=== PATIENT | female | born 1960 | race Caucasian/White ===

== ENCOUNTER 2024-01-13 15:40 | Inpatient (IN) ==
[2024-01-13] MEDS: 0.9 % SODIUM CHLORIDE 1,000 ML IV ONE (16:30)
[2024-01-13 16:34] LABS: Basophils # (Auto) 0.03 K/mcL (0.00-0.30); Basophils % (Auto) 0.5 % (0.0-2.0); Eosinophils # (Auto) 0.07 K/mcL (0.00-0.70); Eosinophils % (Auto) 1.1 % (0.0-7.0); Hematocrit 39.5 % (34.1-44.9); Hemoglobin 13.4 g/dL (11.2-15.7); Lymphocytes # (Auto) 1.04 K/mcL (1.50-4.80); Lymphocytes % (Auto) 15.9 % (15.5-49.0); Mean Cell Volume 90.6 fL (80.0-100.0); Mean Corpuscular HGB Conc 33.9 g/dL (31.0-36.0); Mean Platelet Volume 12.5 fL (8.8-12.5); Monocytes # (Auto) 0.36 K/mcL (0.10-0.90); Monocytes % (Auto) 5.5 % (1.0-12.0); Neutrophils % (Auto) 76.8 % (38.0-78.0); Platelet Count 133 K/mcL (140-440); RBC 4.36 M/mcL (3.59-5.38); Red Cell Distribution Width 12.6 % (11.5-14.5); WBC 6.6 K/mcL (4.5-11.0)
[2024-01-13 17:01] LABS: ALT/SGPT < 5 U/L (0-40); AST/SGOT 17 U/L (<32); Albumin 4.1 gm/dL (3.2-5.2); Albumin/Globulin Ratio 1.6 (1.0-2.3); Alkaline Phosphatase 64 U/L (39-117); Bilirubin,Total 0.4 mg/dL (0.1-1.0); Blood Urea Nitrogen 17 mg/dL (8-23); Carbon Dioxide 20 mmol/L (22-30); Chloride 95 mmol/L (96-108); Globulin 2.6 gm/dL (2.2-3.7); Glomerular Filtration Rate 59; Glucose 504 mg/dL (70-105)
[2024-01-13 17:10] LABS: Beta Hydroxybutyrate 2.41 mmol/L (<0.27)
[2024-01-13] MEDS: LACTATED RINGERS 1,000 ML IV ONE (18:03)
[2024-01-13] MEDS: INSULIN REGULAR, HUMAN 1 UNIT/0.01 ML UNIT IV ONE (18:21)
[2024-01-13] MEDS: ONDANSETRON 4 MG/2 ML VIAL IV ONE ×2 (18:22→22:00)
[2024-01-13] MEDS: INSULIN REGULAR, HUMAN 50 UNIT in 0.9 % SODIUM CHLORIDE 99.5 ML IV SCH (19:45)
[2024-01-13] MEDS: INSULIN REGULAR, HUMAN 1 UNIT/0.01 ML UNIT ONE (19:46)
[2024-01-13 20:19] LABS: Appearance,Urine Clear (Clear); Bacteria,Urine Few /hpf (0); Bilirubin,Urine Negative (Negative); Color,Urine Yellow; Culture Indicated,Urine Yes; Glucose,Urine (UA) 500(2+) mg/dL (Negative); Ketones,Urine 40(2+) mg/dL (Negative); Leukocyte Esterase,Urine Negative /uL (Negative); Nitrate,Urine Negative (Negative); PH,Urine 5.5 (5.0-9.0); Protein,Urine Negative (Negative); Urine Blood Negative ery/mcL (Negative); Urine RBC 1 /hpf (0-3); Urine Squamous Epithelial Cell 1 /hpf (0-4); Urine WBC 4 /hpf (0-4); Urobilinogen,Urine Normal
[2024-01-13] MEDS ORDERED: SENNOSIDES 1 TABLET PO PRN (22:18)
[2024-01-13] MEDS ORDERED: POLYETHYLENE GLYCOL 3350 17 GM PACKET PO PRN (22:18)
[2024-01-13] MEDS ORDERED: ONDANSETRON 4 MG/2 ML VIAL IV PRN (22:18)
[2024-01-13] MEDS ORDERED: POTASSIUM CHLORIDE 20 MEQ TABLET PO PRN ×2 (22:18)
[2024-01-13] MEDS ORDERED: IPRATROPIUM/ALBUTEROL 3 ML AMPUL.NEB NEB PRN (22:18)
[2024-01-13] MEDS ORDERED: POTASSIUM CHLORIDE 40 MEQ in DEXTROSE 5% IN WATER 500 ML IV PRN (22:18)
[2024-01-13] MEDS: DEXTROSE 50% 50 ML SYRINGE IV ONE (22:20)
[2024-01-13] MEDS: DEXTROSE 50% 50 ML VIAL IV PRN (22:20)
[2024-01-13] MEDS: 0.9 % SODIUM CHLORIDE 1,000 ML IV SCH ×2 (22:46→23:33)
[2024-01-13] MEDS: INSULIN LISPRO 1 UNIT/0.01 ML UNIT SQ SCH (23:29)
[2024-01-13] MEDS: INSULIN LISPRO 1 UNIT/0.01 ML UNIT SQ ONE (23:33)
[2024-01-13] MEDS: DOCUSATE SODIUM 100 MG CAPSULE PO SCH (23:33)
[2024-01-14] MEDS: INSULIN LISPRO 1 UNIT/0.01 ML UNIT SQ ONE (04:01)
[2024-01-14 06:46] LABS: ALT/SGPT < 5 U/L (<40); AST/SGOT 12 U/L (<32); Albumin 3.6 gm/dL (3.2-5.2); Albumin/Globulin Ratio 1.9 (1.0-2.3); Alkaline Phosphatase 56 U/L (39-117); Bilirubin,Direct < 0.2 mg/dL (0-0.3); Bilirubin,Total 0.4 mg/dL (0.1-1.0); Blood Urea Nitrogen 17 mg/dL (8-23); Calcium 8.7 mg/dL (8.6-10.4); Carbon Dioxide 25 mmol/L (22-30); Chloride 105 mmol/L (96-108); Globulin 1.9 gm/dL (2.2-3.7); Glomerular Filtration Rate 78; Glucose 158 mg/dL (70-105); Lactate Dehydrogenase 158 U/L (135-225); Phosphorous 3.1 mg/dL (2.5-4.5); Triglycerides 41 mg/dL (<150); Uric Acid 4.2 mg/dL (2.5-8.0)
[2024-01-14 08:12] LABS: Beta Hydroxybutyrate 0.33 mmol/L (<0.27)
[2024-01-14 09:25] LABS: Estimated Average Glucose(eAG) 160 mg/dL; Hemoglobin A1C 7.2 % Hgb (4.0-6.0)
[2024-01-14] MEDS: METOPROLOL TARTRATE 25 MG TABLET PO SCH (09:29)
[2024-01-14] MEDS: SERTRALINE 100 MG TABLET PO SCH (09:29)
[2024-01-14] MEDS: LEVOTHYROXINE 50 MCG TABLET PO SCH (09:30)
[2024-01-14] MEDS: PANTOPRAZOLE 40 MG TABLET PO SCH (09:30)
[2024-01-14] MEDS: ENOXAPARIN 40 MG/0.4 ML SYRINGE SQ SCH (09:30)
[2024-01-14] MEDS: INSULIN REGULAR, HUMAN 1 UNIT/0.01 ML UNIT IV ONE (09:43)
[2024-01-14] MEDS: INSULIN REGULAR, HUMAN 50 UNIT in 0.9 % SODIUM CHLORIDE 99.5 ML IV SCH (10:23)
[2024-01-14] MEDS: NICOTINE 14 MG PATCH TOPICAL SCH (10:25)
[2024-01-14] MEDS: ACETAMINOPHEN 325 MG TABLET PO PRN (10:30)
[2024-01-14] MEDS: DEXTROSE 5%-NS 1,000 ML IV SCH (13:26)
[2024-01-14] MEDS: MAGNESIUM SULFATE 2 GM/50 ML BAG IV PRN (23:23)
[2024-01-15] MEDS ORDERED: DEXTROSE 50% 50 ML SYRINGE IV PRN (07:15)
== END 2024-01-15 10:20 | disposition home or self-care (01) | DRG 639 ==
LOC: ED 15:40 → ICU 15:40
PROVIDERS: ADMIT Internal Medicine; ATTEND Internal Medicine